=== PATIENT | female | born 1970 | race Caucasian/White ===

== ENCOUNTER 2018-02-01 18:59 | Emergency (ER) | payer BC, OTHER ==
[~2018-02-01] VITALS: Ht 175.3 cm; Wt 95.5 kg
[2018-02-01 19:01] VITALS: BP 131/81; PULSE 82; TEMP 36.8; O2SAT 98; Ht 175.3 cm; Wt 95.5 kg
[2018-02-01] MEDS ORDERED: MoRPHine SULFATE 10 MG/ML CARP/VIAL IM STA (19:20)
[2018-02-01] MEDS ORDERED: KETOROLAC TROMETHAMINE 60 MG/2 ML VIAL IM STA (19:20)
[2018-02-01] MEDS ORDERED: ONDANSETRON 4MG OD TAB PO STA (19:20)
[2018-02-01] MEDS ORDERED: MoRPHine SULFATE 4 MG/ML 1 ML CARP\\VIAL ONE (19:25)
[2018-02-01] MEDS ORDERED: DEXAMETHASONE **PF** INJ 10 MG/ML VIAL IM ONE (19:30)
[2018-02-01] MEDS ORDERED: KETO2SHA TOP (19:34)
[2018-02-01] MEDS ORDERED: VALA500T60 PO (19:34)
[2018-02-01] MEDS ORDERED: LEVO1IUD2 INT UTER (19:34)
[2018-02-01] MEDS ORDERED: PRLSR20 PO (19:34)
[2018-02-01] MEDS ORDERED: NZRCR TOP (19:34)
--- NOTE | 2018-02-01 20:04 | DIAGNOSTIC IMAGING REPORT ---
LUMBAR SPINE 5 VIEWS CLINICAL HISTORY: Low back pain with right lower extremity radiculopathy. FINDINGS: 5 views of the lumbar spine are obtained. No prior studies are available for comparison at the time of dictation. The skeletal structures are well mineralized. There is no radiographic evidence of fracture or malalignment. Vertebral body height and alignment are maintained. The transverse and spinous processes are intact. There is no evidence of spondylolysis. Tiny anterior osteophytes are seen throughout. Mild facet arthropathy is noted in the lower lumbar region. The intervertebral disc spaces are well-maintained. The visualized bony pelvis appears intact. There is a nonobstructed abdominal bowel gas pattern. Cholecystectomy clips are noted in the right upper quadrant. An intrauterine device is in place. IMPRESSION: No acute bony abnormality is seen involving the lumbosacral spine. Electronically signed by: Dave Alvarez M.D. 02/01/2018 8:03 PM Dictated Date/Time: 02/01/2018 8:02 PM
[2018-02-01] MEDS ORDERED: HYDROmorphone INJ 0.5 MG/0.5 ML SYR IM STA (20:17)
[2018-02-01] MEDS ORDERED: METH4PAK PO (20:19)
[2018-02-01] MEDS ORDERED: OXYC1TAB3 PO (20:19)
--- NOTE | 2018-02-01 20:29 | EMERGENCY ROOM VISIT NOTE ---
History First contact with patient: 19:04 Chief Complaint: BACK INJURY Stated Complaint: FELL, PULLED SOMETHING IN BACK History of Present Illness The patient is a 47 year old female who presents to the Emergency Room with complaints of lower back pain radiating down the right leg to the knee. The patient reports that she has a history of back problems. Her symptoms have been worsening over the past 3-4 months. The patient admits that she did fall off her horse this past summer, and did not have any imaging studies that she is aware of. Symptoms have significantly worsened over the past 3 weeks. The patient re-exacerbated her pain this morning when she slipped while carrying a bale of hay. She reports that she has taken Flexeril and other medications this morning and in the past without relief. She does get some relief with Aleve. She currently denies any bladder or bowel incontinence, saddle anesthesias or lower extremity weakness. She rates her discomfort a 9 out of 10. Review of Systems 10 system review was performed and was negative except for pertinent positives and negatives as indicated in history of present illness Past Medical/Surgical History Medical Problems: (1) Chronic low back pain with right-sided sciatica Surgical Problems: (1) History of cholecystectomy Family History FH: cancer FH: diabetes mellitus FH: gallbladder disease FH: heart disease FH: hypertension Social History Smoking Status: Never Smoker Alcohol Use: none Marital Status: Housing Status: lives with family Occupation Status: employed Current/Historical Medications Scheduled Methylprednisolone (Medrol Dosepak), 0 PO DAILY Omeprazole (Prilosec), 20 MG PO DAILY Valacyclovir (Valtrex), 500 MG PO UD Scheduled PRN Ketoconazole (Ketoconazole), 1 APPLN TOP 2XWK PRN for RASH Ketoconazole (Topical) (Ketoconazole), 1 APPLN TOP 3XWK PRN for Oxycodone Ir (Roxicodone Ir), 1-2 TAB PO Q4H PRN for Pain Miscellaneous Medications Levonorgestrel (Iud) (Mirena), INT UTER Physical Exam Vital Signs Date Time Temp Pulse Resp B/P (MAP) Pulse Ox O2 Delivery O2 Flow Rate FiO2 02/01/18 19:01 36.8 82 20 131/81 98 Room Air Physical Exam CONSTITUTIONAL: Healthy and well nourished. Alert and oriented X 3 with positive affect. Patient appears in moderate discomfort from pain. HEENT: Normocephalic, atraumatic. Pupils equal, round and reactive. No scleral icterus or conjunctival injection. NECK: Full active range of motion without discomfort. RESPIRATORY: Clear to auscultation bilaterally with no wheezing, crackles, rhonchi or stridor. CARDIOVASCULAR: Regular rate and rhythm with no murmurs, rubs or gallops. GASTROINTESTINAL: Bowel sounds present in all quadrants. Soft and nontender to palpation. MUSCULOSKELETAL: Examination shows generalized tenderness to palpation of the lumbar paraspinous muscles, central lumbar spine and right SI joint. Negative logroll. Positive sitting straight leg raise. Ankle plantar/dorsiflexion strength is 5 out of 5 and symmetric bilaterally. INTEGUMENTARY: No rash or other significant dermatologic conditions noted. NEUROLOGIC: No focal neurologic deficits noted. Lower extremities are sensory intact. Medical Decision & Procedures ER Provider Diagnostic Interpretation: My interpretation of lumbar spine x-rays does not show any obvious fractures, spondylolisthesis or significant degenerative changes. Radiologist report is as follows: LUMBAR SPINE 5 VIEWS CLINICAL HISTORY: Low back pain with right lower extremity radiculopathy. FINDINGS: 5 views of the lumbar spine are obtained. No prior studies are available for comparison at the time of dictation. The skeletal structures are well mineralized. There is no radiographic evidence of fracture or malalignment. Vertebral body height and alignment are maintained. The transverse and spinous processes are intact. There is no evidence of spondylolysis. Tiny anterior osteophytes are seen throughout. Mild facet arthropathy is noted in the lower lumbar region. The intervertebral disc spaces are well-maintained. The visualized bony pelvis appears intact. There is a nonobstructed abdominal bowel gas pattern. Cholecystectomy clips are noted in the right upper quadrant. An intrauterine device is in place. IMPRESSION: No acute bony abnormality is seen involving the lumbosacral spine. Medications Administered Medications (Trade) Dose Ordered Sig/Darci Route Start Time Stop Time Status Last Admin Dose Admin Ketorolac Tromethamine (Toradol Inj) 60 mg NOW STAT IM 02/01/18 19:20 02/01/18 19:22 DC 02/01/18 19:34 60 MG Ondansetron HCl (Zofran Odt) 4 mg NOW STAT PO 02/01/18 19:20 02/01/18 19:22 DC 02/01/18 19:35 4 MG Dexamethasone Sodium Phosphate (Dexamethasone Inj Pf) 10 mg NOW ONCE IM 02/01/18 19:30 02/01/18 19:31 DC 02/01/18 19:35 10 MG Morphine Sulfate (MoRPHine SULFATE INJ) 8 mg STK-MED ONCE .ROUTE 02/01/18 19:25 02/01/18 19:26 DC 02/01/18 19:36 8 MG ED Course Patient history and physical exam were performed. Nurse's notes were reviewed. Vital signs were reviewed and were normal. The patient was administered IM morphine, Toradol and Decadron for pain. She also received Zofran ODT. X-rays of the lumbar spine were normal. Upon reassessment, the patient was rating her discomfort a 6 out of 10, and was administered an additional Dilaudid 0.5 mg IM prior to discharge. The patient was provided a home pack and prescription for OxyIR 5 mg, along with a prescription for a Medrol Dosepak. The patient was provided contact information for Dr. Cochran, spine surgeon sales receptionist. The patient reports that she is frustrated because her symptoms are not improving, and she feels that her family doctor is only wanting to treat her with medications. The patient was happy with plan of care, and voiced understanding of all discharge instructions, rating her discomfort a 4 out of 10 at the conclusion of my exam. Medical Decision History and clinical exam findings at this point are not consistent with conus medullaris or cauda equina syndrome. X-rays do not show any evidence for fracture. At this point, I do not feel that an emergent MRI is warranted. She denies any recent illnesses to suggest spinal abscess. I also do not suspect spinal hematoma. [facility] Drug Monitoring Program Search Results: patient reviewed within database, no issues identified Medication Reconcilliation Current Medication List: was personally reviewed by me Blood Pressure Screening Patient's blood pressure: Normal blood pressure Impression Primary Impression: Right lumbar radiculitis Departure Information Prescriptions Methylprednisolone (MEDROL DOSEPAK) 4 Mg Dar 0 PO DAILY, #1 PKT Prov: Tom Dumont PA 02/01/18 Oxycodone Ir (Roxicodone Ir) 5 Mg Tab 1-2 TAB PO Q4H Y for Pain, #24 TAB For Initial Treatment Prov: Tom Dumont PA 02/01/18 Referrals Merced Escalera (PCP) Patient Instructions [facility]
[2018-02-01] MEDS ORDERED: OXYCODONE IR HOME PACK PO ONE (20:30)
== END 2018-02-01 20:34 | disposition home or self-care (01) ==
LOC: C.EDB 19:00 → C.EDD 20:34
DX: M54.16 Radiculopathy, lumbar region (principal); G89.29 Other chronic pain; W01.0XXA Fall on same level from slipping, tripping and stumbling without subsequent striking against object, initial encounter; Z97.5 Presence of (intrauterine) contraceptive device; Z83.3 Family history of diabetes mellitus; Z82.49 Family history of ischemic heart disease and other diseases of the circulatory system; Z83.79 Family history of other diseases of the digestive system